=== PATIENT | female | born 1980 | race African-American/Black ===

== ENCOUNTER 2019-05-02 16:48 | Emergency (ER) | payer MEDICAID, OTHER ==
[~2019-05-02] VITALS: Ht 167.6 cm; Wt 66.0 kg
[2019-05-02 17:39] LABS: BASOPHILS % 0.8 % (0.0-2.0); EOSINOPHILS % 0.6 % (0.0-5.0); HEMATOCRIT. 37.2 % (36.0-48.0); HEMOGLOBIN. 12.3 g/dL (12.0-16.0); LYMPHOCYTES % 24.6 % (20.0-50.0); MEAN CORPUSCULAR HEMOGLOBIN 29.5 pg (28.0-32.0); MEAN CORPUSCULAR VOLUME 89.3 fL (81.0-99.0); MEAN PLATELET VOLUME 7.7 fl (7.4-10.4); MONOCYTES % 8.9 % (2.0-8.0); NEUTROPHILS % 65.1 % (40.0-76.0); PLATELET 288 x1000/uL (130-400); RED BLOOD CELL COUNT 4.16 mill/uL (4.2-5.4); RED CELL DISTRIBUTION WIDTH 13.7 % (11.6-14.6)
[2019-05-02 17:42] LABS: CHLORIDE 110 mEq/L (98-107)
[2019-05-02 18:13] LABS: HCG SCREEN NEGATIVE
[2019-05-02 21:05] VITALS: BP 120/75
== END 2019-05-02 22:04 | disposition home or self-care (01) ==
LOC: ER 16:48
DX: R06.02 Shortness of breath (principal)
CPT/HCPCS: 36415; 71045; 83880; 84484; 84703; 85379; 93005; 99284